=== PATIENT | male | born 1965 | race Caucasian/White ===

== ENCOUNTER 2023-08-10 16:01 | Emergency (ER) | payer BC ==
[2023-08-10 16:25] VITALS: BMI 30.2
[2023-08-10] MEDS ORDERED: MECLIZINE HCL 25 MG TABLET (FP) ONE (17:36)
[2023-08-10] MEDS ORDERED: METOCLOPRAMIDE HCL INJECTION 10 MG/2 ML VIAL ONE (17:36)
[2023-08-10] MEDS: METOCLOPRAMIDE HCL INJECTION 10 MG/2 ML VIAL IVPUSH ONE (17:45)
[2023-08-10] MEDS: LACTATED RINGERS SOLUTION 1000 ML INFUS.BAG IV ONE (17:48)
[2023-08-10] MEDS: MECLIZINE HCL 25 MG TABLET (FP) PO ONE (17:52)
[2023-08-10 17:57] LABS: BASO % 0.2 % (0-2.0); EOS % 0.1 % (0-4.5); HEMATOCRIT 47.4 % (35.4-49); HEMOGLOBIN 15.3 GM/dL (11.7-16.9); LYMPH % 8.3 % (8-40); MCH 27.8 pg (25.7-33.7); MCHC 32.4 g/dl (32.0-35.9); MEAN CELL VOLUME 85.9 fl (80-96); MEAN PLT VOLUME 8.5 fl (7.5-11.1); MONO % 3.6 % (3.8-10.2); NEUT % 87.8 % (42.8-82.8); PLATELET COUNT 208 10^3/uL (134-434); RBC 5.51 M/mm3 (4.00-5.60); RDW 13.7 % (11.9-15.9)
[2023-08-10 18:14] LABS: CALCIUM 9.9 mg/dL (8.5-10.1)
[2023-08-10 18:15] LABS: BLOOD UREA NITROGEN 24.8 mg/dL (7-18); MAGNESIUM 2.5 mg/dL (1.8-2.4)
[2023-08-10 18:19] LABS: TOT PROT 7.8 g/dl (6.4-8.2)
[2023-08-10 18:20] LABS: BILIRUBIN,TOTAL 0.7 mg/dL (0.2-1)
[2023-08-10 19:01] VITALS: BP 121/60; PULSE 72; RESP 18; TEMP 98.1
== END 2023-08-10 18:52 | disposition home or self-care (01) ==
LOC: JER 16:01
PROC: 3E030GC Introduction of Other Therapeutic Substance into Peripheral Vein, Open Approach (ICD-10-PCS; principal; 2023-08-10)
DX: R42 Dizziness and giddiness (principal); R11.2 Nausea with vomiting, unspecified
CPT/HCPCS: 36415; 80053; 83735; 85025; 99284-25